=== PATIENT | female | born 1945 | race American Indian/Alaskan Native ===

== ENCOUNTER 2016-03-22 06:25 | Day surgery (SDC) | payer MEDICARE ==
--- NOTE | 2016-03-20 10:53 | Anesthesia Consultation ---
Anesthesia Consult and Med Hx Date of service: 03/20/16 - Airway Anesthetic Teeth Evaluation: Edentulous ROM Head & Neck: Adequate Mental/Hyoid Distance: Adequate Mallampati Class: Class II Intubation Access Assessment: Probably Good - Pulmonary Exam CTA: Yes - Cardiac Exam Cardiac Exam: RRR - Pre-Operative Health Status ASA Pre-Surgery Classification: ASA2 Proposed Anesthetic Plan: General - Pre-Anesthesia Comment Pre-Anesthesia Comments: Cardiac clearance on 03/06. Nuclear stress 10/01: EF 58% - Pulmonary Hx Smoking: No Hx Respiratory Symptoms: No (nodules on lungs, on watch, follow up w Dr. Kim) SOB: No Hx Sleep Apnea: No - Cardiovascular System Hx Hypertension: Yes (since 2002) Hx Heart Attack/AMI: No Hx Peripheral Vascular Disease: No - Central Nervous System Hx Seizures: No CVA: No Hx Back Pain: Yes (hip arthritis, leg pain) Hx Psychiatric Problems: No - Gastrointestinal Hx Gastroesophageal Reflux Disease: Yes (on meds, well controlled) - Endocrine Hx Renal Disease: No Hx Liver Disease: No Hx Non-Insulin Dependent Diabetes: No (borderline, Diet controlled) - Hematic Hx Anemia: Yes Hx Sickle Cell Disease: No - Other Systems Hx Cancer: No Hx Obesity: No - Additional Comments Anesthesia Medical History Comments: NAC
[2016-03-20 11:06] LABS: Basophils % (Auto) 0.5 % (0.0-1.8); Eosinophils % (Auto) 0.8 % (0.0-4.3); Hematocrit 37.9 % (30.3-42.9); Hemoglobin 12.5 gm/dl (10.1-14.3); Mean Corpuscular HGB Conc 33 % (30-34); Mean Corpuscular Hemoglobin 30 pg (28-32); Mean Corpuscular Volume 90 fl (79-97); Platelet Count 212 K/mm3 (140-440); Red Blood Count 4.24 M/mm3 (3.65-5.03); Red Cell Distribution Width 14.2 % (13.2-15.2); White Blood Count 4.4 K/mm3 (4.5-11.0)
[2016-03-20 11:25] LABS: Anion Gap 13 mmol/L; BUN/Creatinine Ratio 21.66; Blood Urea Nitrogen 13 mg/dL (7-17); Calcium 9.1 mg/dL (8.4-10.2); Carbon Dioxide 28 mmol/L (22-30); Chloride 102.1 mmol/L (98-107); Glucose 93 mg/dL (65-100); Potassium 3.7 mmol/L (3.6-5.0); Sodium 139 mmol/L (137-145)
[~2016-03-22 06:25] MED LIST: NACL 0.9% 1000 ML 1,000 ML IV SCH; PEPCID PO NR; VERSED IV NR
[2016-03-22] MEDS ORDERED: DIPRIVAN 10 MG/ML IV ONE (06:29)
[2016-03-22] MEDS ORDERED: DILAUDID ONE (06:30)
[2016-03-22] MEDS ORDERED: XYLOCAINE MPF 2% ONE (06:30)
[2016-03-22] MEDS ORDERED: NACL BACTERIOSTATIC INFILTRATI ONE (07:14)
[2016-03-22] MEDS ORDERED: DILAUDID IV PRN (08:17)
[2016-03-22] MEDS ORDERED: ZOFRAN IV PRN (08:17)
[2016-03-22] MEDS ORDERED: DEMEROL IV PRN (08:17)
[2016-03-22] MEDS ORDERED: QUELICIN ONE (08:34)
[2016-03-22] MEDS ORDERED: NACL 0.9% IR ONE ×2 (08:57)
[2016-03-22] MEDS ORDERED: ZOFRAN ONE (09:17)
[2016-03-22] MEDS ORDERED: DECADRON ONE (09:17)
--- NOTE | 2016-03-22 09:42 | Anesthesia Day of Surgery ---
Anesthesia Day of Surgery - Day of Surgery Patient Examined: Yes Patient H&P Reviewed: Yes Patient is NPO: Yes Cardiac Clearance: Yes
--- NOTE | 2016-03-22 09:42 | Short Stay Summary ---
Short Stay Documentation Date of service: 03/22/16 Narrative H&P: 70-year-old 011 with postmenopausal bleeding. The patient had an ultrasound performed that demonstrated evidence of multiple uterine fibroids and also findings of a thickened endometrium. The ultrasound was suggestive of a possible endometrial polyp and collection of fluid in the endometrial cavity. Endometrial biopsy was attempted twice however was unsuccessful secondary to a stenotic cervical os. Patient has been reassessed/reevaluated/re-examined. H&P has been reviewed. No interval changes. - History Principal diagnosis: postmenopausal bleeding; thickened endometrium H&P: obtained from office Past Medical History: hypertension, hyperlipidemia Past Surgical History: hernia repair Social history: - Allergies and Medications Current Medications: Allergies ibuprofen [From Motrin] Allergy (Severe, Verified 03/16/16 14:22) HEART RATE INCREASES Home Medications Medication Instructions Recorded Confirmed Last Taken Type Atorvastatin (Nf) [Lipitor] 20 mg PO QDAY 02/28/13 03/16/16 05/13/14 History Esomeprazole Magnesium [Nexium] 40 mg PO QDAY 02/28/13 03/16/16 05/13/14 History Raloxifene HCl [Evista] 60 mg PO QDAY 02/28/13 03/16/16 02/27/13 09:00 History amLODIPine [Norvasc] 5 mg PO DAILY 03/16/16 03/16/16 Unknown History Active Medications Famotidine (Pepcid) 20 mg PO PREOP NR Stop: 03/22/16 23:00 Last Admin: 03/22/16 07:28 Dose: 20 mg Sodium Chloride (Nacl 0.9% 1000 Ml) 1,000 mls @ 100 mls/hr IV DIRECT ZEKE Stop: 03/22/16 23:00 Last Admin: 03/22/16 07:37 Dose: 100 mls/hr Midazolam HCl (Versed) 2 mg IV PREOP NR Stop: 03/22/16 23:00 Last Admin: 03/22/16 07:42 Dose: 1 mg - Physical exam General appearance: no acute distress Integumentary: no rash HEENT: Atraumatic Lungs: Clear to auscultation Breasts: deferred Heart: Regular rate Gastrointestinal: normal Female Genitourinary: deferred Rectal Exam: deferred - Brief post op/procedure progress note Date of procedure: 02/02/17 Pre-op diagnosis: postmenopausal bleeding Post-op diagnosis: same Procedure: Hysteroscopy Dilatation and curettage Anesthesia: MICHELLE Surgeon: RIMA HU Estimated blood loss: minimal Pathology: list (endometrial curettings) Specimen disposition: to lab Condition: stable - Hospital course Hospital course: The patient was admitted that he is surgery underwent a hysteroscopy dilatation and curettage. Please see operative note for details of surgery. Postoperative course was uneventful. - Disposition Condition at discharge: Good Disposition: DISCHARGED TO HOME OR SELFCARE Short Stay Discharge Plan Activity: other (pelvic rest for 2 weeks) Diet: regular Additional Instructions: Follow-up with Dr. Smith in 2 weeks Prescriptions: oxyCODONE /ACETAMINOPHEN [Percocet 5/325] 1 tab PO Q6HR PRN #30 tablet PRN Reason: Pain
--- NOTE | 2016-03-22 09:44 | Operative Report ---
Operative Report Operative Report: Date of procedure: 03/22/2016 Pre-operative diagnosis: Postmenopausal bleeding Post-operative diagnosis: Same as above Procedure name(s): Hysteroscopy; dilatation and curettage Surgeon: Rachael Porter M.D. Hyperbaric Nurse: None Estimated blood loss: Minimal Anesthesia: Gen. endotracheal anesthesia Findings Stenotic cervical os; distorted endometrium Pathology: Endometrial curettings Indication: 70-year-old 011 with a history of postmenopausal bleeding. Endometrial biopsy was unsuccessful secondary to stenotic cervical os. Procedure The patient was taken to the operating room and given general endotracheal anesthesia without complication. The patient was prepped and draped in a normal sterile fashion. A bivalve speculum was placed in the patient's vagina and a single-tooth tenaculum placed on the anterior lip of the cervix. Attempt was made to place the uterine sound was unsuccessful. The hysteroscope was inserted through the cervical os and attempt was made with hydrodissection to dilate the cervix. The hysteroscope was then removed in a off dilator was used to Center graduated fashion. The hysteroscope was again reinserted. The lining of the endometrium appeared to be atrophic however the cavity contour was distorted. There appeared to be a submucosal myoma at the fundus of the uterus. Further distortion of the cavity may likely be secondary to uterine fibroids. The hysteroscope was then removed. A sharp curettage of the endometrial surface was performed and the tissue sent to pathology. The vaginal instruments were removed atraumatically. The patient was successfully extubated and taken to the recovery room in stable condition. All sponge laps and needle counts were correct 2. Specimen was sent to pathology.
--- NOTE | 2016-03-22 10:09 | Post Anesthesia Evaluation ---
- Post Anesthesia Evaluation Patient Participated: Yes Airway Patent: Yes Stable Respiratory Function: Yes Nausea/Vomiting: No Temp > 96.8F: Yes Pain Manageable: Yes Adequeate Hydration: Yes Anesthesia Complications: No Block Receding Appropriately: Not Applicable Patient on Ventilator: No
[2016-03-22 10:17] VITALS: BP 149/70
== END 2016-03-22 11:22 | disposition home or self-care (01) ==
LOC: OR 06:25
PROVIDERS: ATTEND Obstetrics & Gynecology
DX: N88.2 Stricture and stenosis of cervix uteri (principal); I10 Essential (primary) hypertension; K21.9 Gastro-esophageal reflux disease without esophagitis; D64.9 Anemia, unspecified; E78.5 Hyperlipidemia, unspecified; M13.89 Other specified arthritis, multiple sites; Z98.890 Other specified postprocedural states
CPT/HCPCS: 36415; 58558; 80048; 85025; 88305; A4217; J0330; J1100; J1170; J2250; J2405; J2704; J7030

== ENCOUNTER 2016-03-25 21:35 | Emergency (ER) | payer MEDICARE ==
[2016-03-25 22:41] LABS: Anion Gap 18 mmol/L; BUN/Creatinine Ratio 12.85; Blood Urea Nitrogen 9 mg/dL (7-17); Calcium 9.5 mg/dL (8.4-10.2); Carbon Dioxide 31 mmol/L (22-30); Chloride 98.2 mmol/L (98-107); Glucose 106 mg/dL (65-100); Potassium 3.8 mmol/L (3.6-5.0); Sodium 143 mmol/L (137-145)
[2016-03-25 22:54] LABS: Basophils % (Auto) 0.5 % (0.0-1.8); Eosinophils % (Auto) 1.3 % (0.0-4.3); Hematocrit 38.4 % (30.3-42.9); Hemoglobin 12.9 gm/dl (10.1-14.3); Mean Corpuscular HGB Conc 34 % (30-34); Mean Corpuscular Hemoglobin 30 pg (28-32); Mean Corpuscular Volume 89 fl (79-97); Platelet Count 229 K/mm3 (140-440); Red Blood Count 4.32 M/mm3 (3.65-5.03); White Blood Count 6.1 K/mm3 (4.5-11.0)
--- NOTE | 2016-03-26 00:30 | Emergency Department Report ---
ED Chest Pain HPI - General Chief Complaint: Chest Pain Stated Complaint: CHEST PAIN Time Seen by Provider: 03/26/16 00:29 Source: patient Mode of arrival: Ambulatory Limitations: No Limitations - History of Present Illness Initial Comments: This is a pleasant 70-year-old female who complains of right-sided chest pain 1 week. She describes as somewhat pleuritic in nature sometimes it seems to be exacerbated by movements of her arm and deep inspiration. She does indicate that she had D&C under general anesthesia just 3 days ago. She reports no change in her discomfort after anesthesia. Occasional cough. No fevers. She denies any history of blood clots pains at this time. Patient denies any significant cardiac history. She reports being able to keep up with activities she denies any dyspnea A. More just discomfort when trying to take a deep breath. MD Complaint: chest pain Onset/Timin -: Gradual, week(s) Onset: during rest, during exertion Pain Location: right chest Pain Radiation: other ( R shoulder) Severity: moderate Quality: tightness Improves With: nothing Worsens With: nothing Context: recent surgery - Related Data Home Medications Medication Instructions Recorded Confirmed Last Taken Atorvastatin (Nf) [Lipitor] 20 mg PO QDAY 02/28/13 03/22/16 03/21/16 21:00 Esomeprazole Magnesium [Nexium] 40 mg PO QDAY 02/28/13 03/22/16 03/21/16 21:00 Raloxifene HCl [Evista] 60 mg PO QDAY 02/28/13 03/16/16 02/27/13 09:00 amLODIPine [Norvasc] 5 mg PO DAILY 03/16/16 03/22/16 03/21/16 21:00 Pantoprazole 03/22/16 03/21/16 21:00 traMADol [Ultram 50 MG tab] 50 mg PO TID 03/22/16 03/22/16 03/21/16 21:00 Previous Rx's Medication Instructions Recorded Last Taken Type oxyCODONE /ACETAMINOPHEN [Percocet 1 tab PO Q6HR PRN #30 tablet 03/22/16 Unknown Rx 5/325] Naproxen [Naprosyn TAB] 500 mg PO BID #15 tablet 03/26/16 Unknown Rx Allergies Allergy/AdvReac Type Severity Reaction Status Date / Time ibuprofen [From Motrin] Allergy Severe HEART RATE Verified 03/16/16 14:22 INCREASES MINDY score - Mindy Score Age > 65: (1) Yes Aspirin use within the Past 7 Days: (0) No 3 or more CAD Risk Factors: (1) Yes 2 or more Angina events in past 24 hrs: (0) No Known CAD with more than 50% Stenosis: (0) No Elevated Cardiac Markers: (0) No ST Deviation Greater than 0.5mm: (0) No MINDY Score: 2 ED Review of Systems ROS: Stated complaint: CHEST PAIN Other details as noted in HPI Constitutional: denies: chills, fever Eyes: denies: eye pain, eye discharge, vision change ENT: denies: ear pain, throat pain Respiratory: shortness of breath. denies: cough, wheezing Cardiovascular: chest pain. denies: palpitations Endocrine: no symptoms reported Gastrointestinal: denies: abdominal pain, nausea, diarrhea Genitourinary: denies: urgency, dysuria, discharge Musculoskeletal: denies: back pain, joint swelling, arthralgia Skin: denies: rash, lesions Neurological: denies: headache, weakness, paresthesias Psychiatric: denies: anxiety, depression Hematological/Lymphatic: denies: easy bleeding, easy bruising ED Past Medical Hx - Past Medical History Previous Medical History?: Yes Hx Hypertension: Yes (since 2002) Hx Heart Attack/AMI: No Hx Diabetes: Yes ("borderline" no meds) Hx GERD: Yes Hx Liver Disease: No Hx Renal Disease: No Hx Sickle Cell Disease: No Hx Arthritis: Yes Hx Seizures: No Hx HIV: No Additional medical history: Lung nodule. HIATAL HERNIA. fibroid tumurs - Surgical History Past Surgical History?: Yes Additional Surgical History: Hernia repair. D&C on 03/22/16 - Social History Smoking Status: Never Smoker - Medications Home Medications: Home Medications Medication Instructions Recorded Confirmed Last Taken Type Atorvastatin (Nf) [Lipitor] 20 mg PO QDAY 02/28/13 03/22/16 03/21/16 21:00 History Esomeprazole Magnesium [Nexium] 40 mg PO QDAY 02/28/13 03/22/16 03/21/16 21:00 History Raloxifene HCl [Evista] 60 mg PO QDAY 02/28/13 03/16/16 02/27/13 09:00 History amLODIPine [Norvasc] 5 mg PO DAILY 03/16/16 03/22/16 03/21/16 21:00 History Pantoprazole 03/22/16 03/21/16 21:00 History oxyCODONE /ACETAMINOPHEN [Percocet 1 tab PO Q6HR PRN #30 tablet 03/22/16 Unknown Rx 5/325] traMADol [Ultram 50 MG tab] 50 mg PO TID 03/22/16 03/22/16 03/21/16 21:00 History Naproxen [Naprosyn TAB] 500 mg PO BID #15 tablet 03/26/16 Unknown Rx ED Physical Exam - General Limitations: No Limitations General appearance: alert, in no apparent distress - Head Head exam: Present: atraumatic, normocephalic - Eye Eye exam: Present: normal appearance - ENT ENT exam: Present: mucous membranes moist - Neck Neck exam: Present: normal inspection - Respiratory Respiratory exam: Present: normal lung sounds bilaterally, rales (very minimal soft crackles in L base.). Absent: respiratory distress - Cardiovascular Cardiovascular Exam: Present: regular rate, normal rhythm. Absent: systolic murmur, diastolic murmur, rubs, gallop - GI/Abdominal GI/Abdominal exam: Present: soft, normal bowel sounds - Extremities Exam Extremities exam: Present: normal inspection - Back Exam Back exam: Present: normal inspection - Neurological Exam Neurological exam: Present: alert, oriented X3 - Psychiatric Psychiatric exam: Present: normal affect, normal mood - Skin Skin exam: Present: warm, dry, intact, normal color. Absent: rash ED Course Vital Signs 03/25/16 03/26/16 03/26/16 21:45 01:51 03:51 Temperature 98.4 F 96.8 F L Pulse Rate 86 82 Respiratory 18 16 Rate Blood Pressure 151/78 Blood Pressure 146/67 [Left] O2 Sat by Pulse 98 99 98 Oximetry 03/26/16 04:43 Temperature 96.9 F L Pulse Rate 78 Respiratory 16 Rate Blood Pressure Blood Pressure 142/64 [Left] O2 Sat by Pulse 100 Oximetry - Reevaluation(s) Reevaluation #1: 03/26/16 06:32 ECG unremarkable here as his troponin. Patient does have some risk factors for cardiac disease but this seems very unlikely to me with the presentation. I did consider pulmonary embolism. Concern for possibility of tumors or other lesions given her persistent nature over the past week. The anterior chest was ultimately performed. This was unremarkable in general. Very small amount of atelectasis is noted bibasilarly. Labs are otherwise noted as well. I am inclined to think that musculoskeletal seems more likely at this point given negative workup for anything else. CT chest as well the liver is visualized as is the gallbladder in the right kidney. I do not see any pathology involving any of the structures. Patient given reassurance. We'll try her on a inflammatory medication as well as her Percocet medication that she was given post D&C. ED Medical Decision Making - Lab Data Result diagrams: 03/25/16 22:05 03/25/16 22:05 - EKG Data -: EKG Interpreted by Me EKG shows normal: sinus rhythm, axis, intervals, QRS complexes, ST-T waves Rate: normal - EKG Data Interpretation: normal EKG - Radiology Data Radiology results: report reviewed, image reviewed Mild atelectasis bibasilarly no PE. Critical care attestation.: If time is entered above; I have spent that time in minutes in the direct care of this critically ill patient, excluding procedure time. ED Disposition Clinical Impression: Chest pain, non-cardiac Disposition: DISCHARGED TO HOME OR SELFCARE Is pt being admited?: No Does the pt Need Aspirin: No Condition: Stable Instructions: Chest Pain (ED), Musculoskeletal Pain (ED) Additional Instructions: Take the oxycodone and naproxen for pain. Consider some gentle stretching exercises. Prescriptions: Naproxen [Naprosyn TAB] 500 mg PO BID #15 tablet Referrals: PRIMARY CARE, [Primary Care Provider] - 3-5 Days Time of Disposition: 04:07
[2016-03-26] MEDS ORDERED: DILAUDID IV ONE (02:02)
[2016-03-26] MEDS ORDERED: NACL 0.9% 1000 ML 1,000 ML IV ONE (02:03)
--- NOTE | 2016-03-26 03:55 | Cat Scan Report ---
FINAL REPORT EXAM: CT ANGIO CHEST HISTORY: R chest pain TECHNIQUE: Enhanced CT of the chest at 2.5 mm axial intervals following a pulmonary embolism protocol. Coronal and sagittal imaging were also obtained. Oblique coronal MIP projections were obtained. Contrast: 100 ml of Omnipaque 350 given IV. PRIORS: None. FINDINGS: There is no evidence for pulmonary embolism in the main pulmonary artery, right and left pulmonary arteries or their major distributions. However, CT does not exclude distal pulmonary emboli. Linear stranding both lower lobes is seen which may be related to scarring versus atelectasis. There also small amount of atelectasis in the anterior lingula. Otherwise, the lung parenchyma are expanded and clear with no evidence for parenchymal nodules, infiltrates, congestion, or pleural effusion. There is no evidence for mediastinal, hilar, or axillary adenopathy. Cardiovascular structures are within normal limits. Images through the lung bases include the upper abdomen which show no abnormalities of the visualized abdominal viscera. Bony structures demonstrate no focal abnormalities. IMPRESSION: No evidence for pulmonary embolism. Bibasilar linear atelectasis versus scarring. Small amount of atelectasis in the anterior lingula.
--- NOTE | 2016-03-26 04:19 | Admit Criteria Form ---
Admission Criteria Documentation: CHEST PAIN Clinical Indications for Admission to Inpatient Care (Place 'X' for any and all applicable criteria): Admission is indicated for chest pain and ANY ONE of the following(1)(2)(3)(4)(5 ): [ ]I. Angina with acute coronary syndrome (Also use Myocardial Infarction or Angina guideline) [ ]II. Hemodynamic instability [ ]III. Angina needing acute intervention as indicated by ALL of the following( 11)(12): [ ]a) Unstable angina is present as indicated by angina that is ANY ONE of the following: [ ]i) New onset [ ]ii) Nocturnal [ ]iii) Prolonged at rest [ ]iv) Progressive [ ]b) Angina warrants acute intervention as indicated by ANY ONE of the following: [ ]i) Recurrent angina (e.g, not responding as previously to treatment) [ ]ii) Angina at rest or with low-level activities despite initial medical therapy [ ]iii) New or presumably new ST-segment depression on ECG [ ]iv) Signs or symptoms of heart failure (eg, dyspnea, pulmonary edema) [ ]v) New or worsening mitral regurgitation [ ]vi) Hemodynamic instability [ ]vii) Dangerous arrhythmia (eg, sustained ventricular tachycardia) [ ]viii) History of percutaneous coronary intervention within 6 months [ ]ix) History of coronary artery bypass graft surgery [ ]x) MINDY risk score of 2 or greater[A] [ ]xi) History of Diabetes(14) [ ]xii) High-risk cardiac ischemia findings on noninvasive testing (e.g, echocardiogram, treadmill testing, nuclear scan) [ ]xiii) Chronic renal insufficiency (ie, estimated GFR less than 60 mL/min/1.732m) [ ]xiv) Left ventricular ejection fraction less than 40% [ ]IV. Evidence of IN (eg, cardiac biomarkers positive, ST-segment elevation on ECG) also use Myocardial Infarction Criteria Form. [ ]V. Pulmonary edema [ ]. Respiratory distress [ ]VII. Chest pain indicative of serious diagnosis other than coronary artery disease (eg, aortic dissection) [ ]VIII. Contraindications and/or Inappropriate clinical situations for Observational Care in patients with Chest Pain, when ANY ONE of the following is required: [ ]a) Patient with risk factor for pulmonary embolism, acute coronary syndrome and myocardial infarction (18) [ ]b) Patient with Pulmonary embolism require an average LOS of 4.3 days, therefore emergency department observation management is inappropriate 18,23 [ ]c) Painful condition/s in the elderly, have the highest rate of recidivism after emergency department observation management (10.8%) 20,21,22 [ ]d) Elevated cardiac biomarker requires intensive and exhaustive care (19) [ X]IX. General contraindications and/or Inappropriate clinical situations for Observational Care in patients with Chest Pain, when ANY ONE of the following is required: [X ]a) Prediction of prolongation of LOS based on ANY ONE of the following may be considered as a contraindication for observational care 2, 3, 4, 5, 6, 7, 8, 9, 10, 11 [ X]i) Age > 65 yrs. [X ]ii) Patient arriving by ambulance [ ]iii) Patient with high acuity [ ]iv) Patient requiring vital sign monitoring [ ]v) Patient on IV medication [ ]b) Systolic blood pressures 180mmHg 3,12 [ ]c) Patient with altered mental status including delirium and other alteration of consciousness, (3) [ ]d) Patient whose discharge disposition will be to a group home home or rehabilitation home should not be managed in Emergency Department Observation Unit. CMS rule requires 3 days hospital stay before such placement. 3,13 [ ]e) Patient with failure to thrive due to broad array of etiologies 3,16,17 [ ]f) Inability to ambulate 3,14 Extended stay beyond goal length of stay may be needed for (1)(28): [ ]a) Specific condition diagnosed after evaluation (eg, pulmonary embolism, aortic dissection) [ ]b) Unstable angina [ ]c) Continued suspicion of acute coronary syndrome with inability to complete needed cardiac evaluation (eg, patient clinically unable to undergo stress testing) [ ]d) Myocardial infarction (Contents from ANGINA and CHEST PAIN clinical indications for admission to inpatient care have been integrated in this form) The original [employer] content created by [employer] has been revised. The portions of the content which have been revised are identified through the use of italic text or in bold, and [facility] has neither reviewed nor approved the modified material. All other unmodified content is copyright [employer]. Please see references footnoted in the original [facility] edition 2016 Admission Criteria Met: Yes
[2016-03-26 04:43] VITALS: BP 142/64
== END 2016-03-26 04:47 | disposition home or self-care (01) ==
LOC: ED 21:35
DX: R07.9 Chest pain, unspecified (principal); I10 Essential (primary) hypertension; K21.9 Gastro-esophageal reflux disease without esophagitis; Z87.39 Personal history of other diseases of the musculoskeletal system and connective tissue
CPT/HCPCS: 36415; 71275; 80048; 84484; 85025; 93005; 93010; 96361; 96374; 99285; J1170; J7030; Q9967

== ENCOUNTER 2016-08-17 06:26 | Outpatient (CLI) | payer MEDICARE ==
--- NOTE | 2016-08-17 10:36 | Magnetic Resonance Report ---
MR CERVICAL SPINE WITHOUT CONTRAST HISTORY: Cervical radiculopathy. TECHNIQUE: Axial T2. Sagittal T1, T2 and STIR. COMPARISON: None. FINDINGS: The cervical spinal cord is normal size and signal intensity throughout. No central canal stenosis. Normal height and alignment of the cervical vertebral bodies. Normal bone marrow signal. There is mild diffuse disc desiccation and narrowing. No advanced degenerative disc disease. The facet joints are within normal limits. At C5-6: A mild diffuse posterior bulging disc lateralizes to the left side. The central canal measures 10 mm at this level. There is no obvious mass effect on nerve roots or the spinal cord. No significant neural foraminal narrowing. The remaining levels of the cervical spine are within normal limits. IMPRESSION: Mild bulging disc which lateralizes the left side at C5-6 as outlined above. No high-grade central canal stenosis or neural foraminal narrowing.
--- NOTE | 2016-08-17 13:24 | Magnetic Resonance Report ---
MRI scan of the lumbar spine: History: Lumbar radiculopathy. Technique: Multiplanar, multisequence images were obtained without contrast injection. Findings: Conus medullaris terminates at L1 with normal signal intensity. Normal lumbar lordosis. Normal pre-and paravertebral soft tissue. Normal height and signal intensity of vertebral bodies. Decrease in signal intensity of the L5-S1 disc probably due to early degenerative change. L1-L2. Normal. L2-L3. Normal. L3-4. Normal. L4-L5. Moderate bilateral neural foraminal narrowing secondary to diffuse disc bulge and degenerative facet joint. Mild central canal spinal stenosis. Ligamenta flava hypertrophy. L5-S1. Mild bilateral neuroforaminal narrowing and mild degenerative facet density diffuse disc bulge. No central canal spinal stenosis. Impression: Bilateral neuroforamina narrowing with central canal spinal stenosis L4-L5. Mild bilateral neuroforaminal narrowing L5-S1.
== END 2016-08-17 06:27 | disposition home or self-care (01) ==
LOC: MRI 06:26
PROVIDERS: ATTEND Psychiatry & Neurology Neurology
DX: M48.06 Spinal stenosis, lumbar region (principal); M54.17 Radiculopathy, lumbosacral region; M40.46 Postural lordosis, lumbar region; M54.12 Radiculopathy, cervical region; M24.28 Disorder of ligament, vertebrae; M53.82 Other specified dorsopathies, cervical region; I10 Essential (primary) hypertension; E11.9 Type 2 diabetes mellitus without complications; D64.9 Anemia, unspecified; E78.00 Pure hypercholesterolemia, unspecified
CPT/HCPCS: 72141; 72148

== ENCOUNTER 2018-07-04 07:27 | Outpatient (CLI) | payer MEDICARE ==
--- NOTE | 2018-07-08 02:13 | Nuclear Medicine Report ---
PROCEDURE: NM GASTRIC EMPTYING SCAN TECHNIQUE: Anterior images of the stomach were obtained for 90 minutes after the oral administration of 1 mCi Tc-99m sulfur colloid mixed with oatmeal. Time-activity curves were generated and emptying half-time was calculated. HISTORY: K21.0 GASTRO-ESOPHAGEAL REFLUX DISEASE COMPARISONS: None . FINDINGS: Post-prandial vomiting: None reported Esophageal retention of the meal: None visualized Gastric emptying T one half: 89 minutes. [45-110 minute range with average of 90 minutes] Gastric emptying: Normal . IMPRESSION: Normal Examination . This document is electronically signed by Julianne Mendoza DO., Jul 08 2018 02:11:56 AM ET
== END 2018-07-04 07:28 | disposition home or self-care (01) ==
LOC: NM 07:27
PROVIDERS: ATTEND Internal Medicine Gastroenterology
DX: K21.0 Gastro-esophageal reflux disease with esophagitis (principal); I10 Essential (primary) hypertension; E78.00 Pure hypercholesterolemia, unspecified; K21.9 Gastro-esophageal reflux disease without esophagitis; E11.9 Type 2 diabetes mellitus without complications
CPT/HCPCS: 78264; A9541

== ENCOUNTER 2021-08-10 07:00 | Outpatient (CLI) | payer MEDICARE ==
--- NOTE | 2021-08-10 09:47 | Nuclear Medicine Report ---
NUCLEAR MEDICINE HEPATOBILIARY SCAN INDICATION: R10.00 RIGHT UPPER QUADRANT PAIN. TECHNIQUE: Radiotracer: Tc-99m mebrofenin (by IV): 5.3 mCi. Gallbladder Stimulant: Ensure/Glucerna (8 ounces by mouth) COMPARISON: None available. FINDINGS: Hepatic activity: Normal. Biliary activity: Normal. Common bile duct activity at 10 minutes. Gallbladder activity: Normal at 20 minutes. Small bowel activity: Normal at 60 minutes. Gallbladder ejection fraction % (if calculated): 71 (Normal is >35% at 30 min with Cholecystokinin OR >33% at 60 min with Ensure/Glucerna). Patient symptom reproduction: No symptoms reported. IMPRESSION: 1. No biliary obstruction. 2. Normal gallbladder ejection fraction of 71%. Signer Name: Serafin Arzola MD Signed: 08/10/2021 9:43 AM Workstation Name: [id number]
== END 2021-08-10 07:01 | disposition home or self-care (01) ==
LOC: NM 07:00
PROVIDERS: ATTEND Internal Medicine Gastroenterology
DX: R10.11 Right upper quadrant pain (principal)
CPT/HCPCS: 78227; A9537